=== PATIENT | male | born 1980 | race Caucasian/White ===

== ENCOUNTER 2018-10-15 07:50 | Day surgery (SDC) | payer OTHER ==
--- OUTSIDE RECORDS SUMMARY | 2018-10-15 07:54 | XMS REPORT ---
:1980 [facility] [address] [place] [address] Dr. Parra [address] [place] [id number] Care Team Providers Name Role Phone Unavailable Unavailable Unavailable Problems This patient has no known problems. Allergies, Adverse Reactions, Alerts This patient has no known allergies or adverse reactions. Medications This patient has no known medications.
--- OUTSIDE RECORDS SUMMARY | 2018-10-15 07:54 | XMS REPORT ---
:1980 Author Organization [employer] Care Team Providers Name Role Phone Yovani Cowan Provider Role Unavailable Allergies, Adverse Reactions, Alerts Substance Reaction Event Type Sulfa Info Not Available Drug Allergy Problems Problem Type Condition Code Onset Dates Condition Status Assessment Umbilical hernia without obstruction K42.9 Active and without gangrene Medications Medication Code Code Instructions Start End Date Status Dosage System Date tylenol NDC 0 Oral Active 1 tab Suboxone NDC 29964622467 12-3 MG Active 1 film under Sublingual Once the tongue a day and allow to dissolve ibuprofen NDC 0 Active not defined Results No Known Results Summary Purpose [employer] Submission
[2018-10-15] MEDS ORDERED: CEFAZOLIN/SWI 2gm 2 GM/20 ML SYR ONE (08:11)
[2018-10-15] MEDS ORDERED: Ringers Lactate 1,000 ML IV ONE (08:11)
[2018-10-15] MEDS ORDERED: PROPOFOL 200 MG/20 ML VIAL IV ONE (08:17)
[2018-10-15] MEDS ORDERED: MIDAZOLAM HCL 2 MG/2 ML INJ ONE (08:17)
[2018-10-15] MEDS ORDERED: GLYCOPYRROLATE 0.2 MG/ML SYR ONE (08:18)
[2018-10-15] MEDS ORDERED: LIDOCAINE 2% MPF 5 ML VIAL ONE (08:18)
[2018-10-15] MEDS ORDERED: FENTANYL CITR 250 MCG/5 ML ONE (08:19)
[2018-10-15] MEDS ORDERED: ROCURONIUM 50 MG/5 ML VIAL IV ONE (08:20)
[2018-10-15] MEDS ORDERED: ONDANSETRON 4 MG/2 ML VIAL ONE (08:22)
[2018-10-15] MEDS ORDERED: NEOSTIGMINE 1 MG/ML -10 ML VIAL ONE (08:22)
[2018-10-15] MEDS ORDERED: BUPIVACA 0.5%/EPI 0.0005%/PF 30 ML VIAL ONE (08:45)
[2018-10-15] MEDS ORDERED: BUPIVACA 0.5%/EPI 0.0005%/PF 10 ML VIAL ONE (08:46)
[2018-10-15] MEDS ORDERED: KETOROLAC 30 MG/ML INJ ONE (09:21)
--- NOTE | 2018-10-15 09:53 | P.OP ---
Preoperative diagnosis: Umbilical Hernia Postoperative diagnosis: Umbilical Hernia Primary procedure: Open Umbilical Hernia Repair with Mesh Anesthesia: GETA + Local Estimated blood loss: <20cc Specimen: Hernia Sack, omental fat Findings: <0.5cm hernia neck with entrapped omentum Complications: None Implants: Bard Ventralex 4.3cm Transferred to: Recovery Room Condition: Good
[2018-10-15] MEDS ORDERED: HYDROCODONE/APAP 5/325 MG TAB ONE (11:09)
--- NOTE | 2018-10-15 20:22 | OP ---
Date of Procedure: 10/15/2018 Surgeon: Yovani Cowan MD, Preoperative Diagnosis: Umbilical hernia. Postoperative Diagnosis: Umbilical hernia. Procedure Performed: Open umbilical hernia repair with mesh. Anesthesia: General endotracheal plus local with 0.5% Marcaine with epinephrine. Estimated Blood Loss: 20 cc. Specimens: Hernia sac and omental fat. Findings: Less than 0.5 cm hernia neck with entrapped omentum. Complications: None. Implants: Bard Ventralex 4.3 cm round mesh with sail. Disposition: Transferred to recovery room in good condition. Procedure In Detail: After informed consent was obtained, patient was brought to the operating room, prepped and draped in the usual sterile fashion. After adequate anesthesia was achieved, the infrau mbilical area was anesthetized with 0.5% Marcaine. Sharply incised in a curvilinear fashion and elec trocautery was used to dissect down to the subcutaneous tissues. I then bluntly dissected circumfere ntially around the hernia sac, and a hernia defect was found to be approximately 0.5 cm in size. I o pened the hernia sac at this time and omentum was appreciated at this time, was entrapped and engorge d. Therefore, I ligated at this time with electrocautery with good hemostasis. The remaining small neck of omentum was then returned to the preperitoneal space. A finger sweep was performed at this t leon to ensure that there was a good flat landing position for the mesh in the preperitoneal space, an d the hernia defect was slightly opened to allow for index finger digitalization and a finger sweep o f the area to ensure a good landing zone was maintained. At this time, a 4.3 cm Bard Ventralex round mesh was brought into the field, and in a parachute-type fashion using 0 PDS sutures, it was placed in the preperitoneal space, elevated after Chilango clamps grasped the fascia, elevated it, and placed it flat along the preperitoneal space. A finger sweep ensured good apposition to the anterior abdomi nal wall, and the sutures were then secured to the skin. An additional suture of 0 PDS was used to c lose the fascia over the top of this, securing it to the sail in an interrupted fashion. Good apposi tion and approximation of the hernia defect for complete closure. The sail was then trimmed and the sutures were all cut at this time. The area was copiously irrigated and the defect was found to be c losed with good position of the mesh. The area was copiously irrigated multiple times until complete ly clear. The dermal plane was then closed using interrupted 3-0 Vicryl sutures with good approximat ion, and the skin was then closed with a 4-0 Monocryl in a running fashion. Dermabond was placed ove r the top. Patient tolerated the procedure well without evidence of complication and transferred to PACU in good condition. All counts were correct at the end of the case. CRISSY/DANIEL Voice ID: [id number] Report ID: [id number]
== END 2018-10-15 12:15 | disposition home or self-care (01) ==
LOC: OR 07:50
PROVIDERS: ATTEND Surgery
PROC: 0WUF0JZ Supplement Abdominal Wall with Synthetic Substitute, Open Approach (ICD-10-PCS; principal; 2018-10-15 09:15)
DX: K42.9 Umbilical hernia without obstruction or gangrene (principal); F17.200 Nicotine dependence, unspecified, uncomplicated; Z88.2 Allergy status to sulfonamides; Z80.7 Family history of other malignant neoplasms of lymphoid, hematopoietic and related tissues
CPT/HCPCS: 88302; 49585; J2704; J2710; J2250; J3010; J0690; J2405